=== PATIENT | male | born 1975 | race Caucasian/White ===

== ENCOUNTER 2025-05-16 01:28 | Emergency (ER) | payer MEDICAID, OTHER ==
[2025-05-16] MEDS: Na Phos,M-B/Na Phos,DI-B 60 ML, Mineral Oil 50 ML, Docusate Sodium 400 MG, Magnesium Ci... RECTAL ONE (02:15)
== END 2025-05-16 03:00 | disposition home or self-care (01) ==
LOC: JP.ED 01:28
DX: K59.00 Constipation, unspecified (principal); I10 Essential (primary) hypertension; Z79.899 Other long term (current) drug therapy
CPT/HCPCS: 99283; A9270-GY